=== PATIENT | male | born 1975 | race Caucasian/White ===

== ENCOUNTER 2017-08-16 14:36 | Emergency (ER) | payer SELFPAY ==
[~2017-08-16] VITALS: Ht 190.5 cm; Wt 76.0 kg
[2017-08-16] MEDS ORDERED: NAPROSYN500 MG PO (15:59)
[2017-08-16] MEDS ORDERED: TESSALON PERLE100 MG PO (15:59)
[2017-08-16 16:20] VITALS: BP 140/96
== END 2017-08-16 16:15 | disposition home or self-care (01) ==
LOC: EME 14:36
PROVIDERS: Nurse Practitioner Family
DX: J06.9 Acute upper respiratory infection, unspecified (principal); Z88.5 Allergy status to narcotic agent
CPT/HCPCS: 71046; 87502; 87651 90; 99281; 99282